=== PATIENT | female | born 1950 | race Caucasian/White ===

== ENCOUNTER 2020-11-11 07:31 | Inpatient (IN) | payer OTHER ==
[~2020-11-11] VITALS: Ht 167.6 cm; Wt 107.8 kg
[~2020-11-11 07:31] MED LIST: CRUTCH2 XX; HYDR1TAB94 PO; PROM25 PO; TRAACE PO
[2020-11-11 08:06] LABS: BASOPHILS ABSOLUTE AUTO 0.05 K/mm3 (0.00-0.23); BASOPHILS PERCENT AUTO 0 % (0-2); EOSINOPHILS ABSOLUTE AUTO 0.21 K/mm3 (0.00-0.68); EOSINOPHILS PERCENT AUTO 1 % (0-6); Hematocrit 44.6 % (33.0-51.0); Hemoglobin 14.5 g/dL (11.5-16.0); IMMATURE GRAN PERCENT AUTO 1 % (0-1); LYMPHOCYTES ABSOLUTE AUTO 0.96 K/mm3 (0.84-5.20); LYMPHOCYTES PERCENT AUTO 6 % (21-46); MONOCYTES ABSOLUTE AUTO 1.19 K/mm3 (0.16-1.47); MONOCYTES PERCENT AUTO 7 % (4-13); Mean Corpuscular HGB 28.6 pg (26.0-34.0); Mean Corpuscular HGB Conc 32.5 g/dL (31.5-36.5); Mean Corpuscular Volume 88 fL (80-100); Mean Platelet Volume 10.1 fL (9.1-12.4); NEUTROPHILS ABSOLUTE AUTO 14.97 K/mm3 (1.96-9.15); NEUTROPHILS PERCENT AUTO 86 % (41-73); Platelet Count 422 K/mm3 (150-400); RDW Coefficient Variation 12.8 % (11.7-14.2); RDW Standard Deviation 41.6 fL (35.1-46.3); Red Blood Cell Count 5.07 M/mm3 (3.80-5.20); White Blood Cell Count 17.48 K/mm3 (4.00-11.30)
[2020-11-11 08:30] LABS: Alanine Aminotransfer (ALT/SGP 14 U/L (12-78); Albumin, Blood 2.8 g/dL (3.4-5.0); Albumin/Globulin Ratio 0.6 (0.8-1.8); Alk Phos 95 U/L (50-136); Anion Gap 13 mmol/L (6-16); Aspartate Aminotrans (AST/SGOT 9 U/L (12-37); Blood Urea Nitrogen 12 mg/dL (8-24); Bun/Creatinine Ratio 14.5 (12.0-20.0); CO2, Blood 21 mmol/L (21-32); Calcium, Blood 8.9 mg/dL (8.5-10.1); Chloride, Blood 104 mmol/L (98-108); Creatinine, Blood 0.83 mg/dL (0.40-1.00); Globulin, Blood 4.5 g/dL (2.2-4.0); Glomerular Filtration Rate >60 (60-); Glucose, Blood 138 mg/dL (70-99); Potassium, Blood 3.2 mmol/L (3.5-5.5); Sodium, Blood 138 mmol/L (136-145); Total Protein, Blood 7.3 g/dL (6.4-8.2); Troponin I <0.015 ng/mL (0.000-0.040)
[2020-11-11] MEDS ORDERED: ALBU2.5V5 INH (09:37)
[2020-11-11] MEDS ORDERED: Aspirin EC81 MG PO (09:37)
[2020-11-11] MEDS ORDERED: IBUP600 PO (09:38)
[2020-11-11 12:25] LABS: International Normalized Ratio 1.07; Prothrombin Time Results 11.4 Sec (9.7-11.5)
[2020-11-11 14:49] LABS: Influenza A, PCR NEGATIVE (NEGATIVE); Influenza B, PCR NEGATIVE (NEGATIVE); Resp Syncytial Virus, PCR NEGATIVE (NEGATIVE); SARS-Cov-2 (COVID-19) PCR, MMC NEGATIVE (NEGATIVE)
[2020-11-11 15:51] LABS: Source, Urine Clean Catch
[2020-11-11 15:55] LABS: Appearance, Urine Hazy (Clear); Blood, Urine 1+ (Neg); Color, Urine Amber (P-Yellow); Glucose Qualitative, Urine Neg (Neg); Ketones, Urine 4+ (Neg); Leukocyte Esterase, Urine 1+ (Neg); Nitrite, Urine Neg (Neg); Protein, Urine 2+ (Neg); Urobilinogen, Urine 3+ (Normal)
[2020-11-11 16:08] LABS: Bilirubin, Urine 1+ (Neg)
[2020-11-11 16:09] LABS: Bacteria Many /hpf; Red Blood Cells, Urine 0-2 /hpf (0-2); Squamous Epithelial Cells Mod /hpf (Few)
[2020-11-11 16:10] LABS: Granular Casts 0-2 /lpf (0); Mucus Light (0-Heavy)
[2020-11-11 16:44] LABS: Automated BF RBC Count 0.004 M/mm3 (0-0); Automated BF WBC Count 3.567 K/mm3 (0-999); Body Fluid WBC Count 3567 /mm3 (0-999); RBC Count, Body Fluid 4000 /mm3 (0-0)
[2020-11-11 17:06] LABS: Lactate Dehydrogenase, Body Fl 827 U/L; Protein, Body Fluid 4.3 g/dL
[2020-11-11 17:27] LABS: Total Cell Count, Body Fluid 100
[2020-11-11 17:28] LABS: Appearance, Body Fluid Cloudy (Clear); Color, Body Fluid Yellow (None-Yellow)
--- NOTE | 2020-11-11 17:54 | NUR ---
ADMISSION NOTE RECEIVED REPORT FROM RAKESH WEAVER FROM ED. PT AND SPOUSE TO ROOM AT 1515; ORIENTED TO ROOM AND CALL LIGHT. EDUCATED ON FALL RISK. ULTRASOUND AND RADIOLOGIST TO ROOM FOR BEDSIDE THORACENTESIS, APPROX 1L REMOVED. PT A&ox4;CALM AND COOPERATIVE WITH CARE. PT RESTING IN BED, UP SBA WITH IV TUBING. PT REPORTS RIGHT SIDE/RIBS, MEDICATED PER EMAR. PT SOB AT REST; ON 3L O2 VIA NC, TITRATED FROM 5L O2 VIA NC ON ADMISSION. LS LINDEN, DIM IN BASES R>L. PT DENIES NAUSEA, NUMB/TINGLING AND LIGHTHEADEDNESS. PT AFIB 80'S ON ADMISSION; CONVERTED PER EKG/PROJECT MANAGEMENT ADVISOR THIS EVEING; CARDIZEM OFF AND STARTED ON PO METOPROLOL. OTHER VSS. NO OTHER ACUTE CHANGES NOTED. WILL CONTINUE TO MONITOR UNITL REPORT GIVEN TO ONCOMING RN.
[2020-11-12 03:45] LABS: BASOPHILS ABSOLUTE AUTO 0.04 K/mm3 (0.00-0.23); BASOPHILS PERCENT AUTO 0 % (0-2); EOSINOPHILS ABSOLUTE AUTO 0.36 K/mm3 (0.00-0.68); EOSINOPHILS PERCENT AUTO 3 % (0-6); Hematocrit 39.8 % (33.0-51.0); IMMATURE GRAN ABSOLUTE AUTO 0.06 K/mm3 (0.00-0.10); IMMATURE GRAN PERCENT AUTO 1 % (0-1); LYMPHOCYTES ABSOLUTE AUTO 1.18 K/mm3 (0.84-5.20); LYMPHOCYTES PERCENT AUTO 9 % (21-46); MONOCYTES ABSOLUTE AUTO 1.31 K/mm3 (0.16-1.47); MONOCYTES PERCENT AUTO 11 % (4-13); Mean Corpuscular HGB 28.1 pg (26.0-34.0); Mean Corpuscular HGB Conc 32.7 g/dL (31.5-36.5); Mean Corpuscular Volume 86 fL (80-100); Mean Platelet Volume 9.9 fL (9.1-12.4); NEUTROPHILS ABSOLUTE AUTO 9.54 K/mm3 (1.96-9.15); NEUTROPHILS PERCENT AUTO 76 % (41-73); Platelet Count 373 K/mm3 (150-400); RDW Coefficient Variation 12.9 % (11.7-14.2); RDW Standard Deviation 40.7 fL (35.1-46.3); Red Blood Cell Count 4.62 M/mm3 (3.80-5.20); White Blood Cell Count 12.49 K/mm3 (4.00-11.30)
[2020-11-12 04:03] LABS: Alanine Aminotransfer (ALT/SGP 12 U/L (12-78); Albumin, Blood 2.3 g/dL (3.4-5.0); Albumin/Globulin Ratio 0.6 (0.8-1.8); Alk Phos 80 U/L (50-136); Anion Gap 8 mmol/L (6-16); Aspartate Aminotrans (AST/SGOT 9 U/L (12-37); Bilirubin, Total 0.6 mg/dL (0.1-1.0); Blood Urea Nitrogen 17 mg/dL (8-24); Bun/Creatinine Ratio 23.7 (12.0-20.0); CO2, Blood 26 mmol/L (21-32); Calcium, Blood 8.5 mg/dL (8.5-10.1); Chloride, Blood 106 mmol/L (98-108); Creatinine, Blood 0.72 mg/dL (0.40-1.00); Glomerular Filtration Rate >60 (60-); Glucose, Blood 96 mg/dL (70-99); Potassium, Blood 3.5 mmol/L (3.5-5.5); Sodium, Blood 140 mmol/L (136-145); Total Protein, Blood 6.3 g/dL (6.4-8.2)
--- NOTE | 2020-11-12 06:03 | NUR ---
SHIFT SUMMARY PT A&O X4. VSS. MONITOR SHOWS NSR, HR 70's. SPO2 > 92% ON 3L NC, TITRATED TO 1L NC THIS SHIFT. PT REPORTS R-SIDED ABD PAIN W/ REPORT OF PAIN "ONLY WHEN I'M MOVING OR COUGHING." PT DENIES WANT/NEED FOR ORDERED NORCO OR FENTANYL PER EMAR, STATING "I WOULD RATHER NOT TAKE NARCOTICS IF I DON'T NEED TO. JUST A SMALL AMOUNT MAKES ME FUZZY." PT TAKING TYLENOL PER EMAR PER PT PREFERENCE FOR PAIN. PT SLEEPING IN RM. NO EVENTS OVER NIGHT. WILL CONTINUE TO MONITOR & PROVIDE CARE UNTIL REPORT OFF TO DAY SHIFT RN.
--- NOTE | 2020-11-12 16:52 | NUR ---
SHIFT SUMMARY: PT ALERT AND ORIENTED X4. ON ROOM AIR SATING ABOVE 92%. USING 1 L O2 VIA NASAL CANNULA NEEDED. PT DESCRIBES THE NEED FOR O2 AFTER WALKING TO AND FROM RESTROOM. TELE SHOWING SINUS WITH HR 70'S. DENIES CHEST PAIN. PAIN LOCATED ON RIGHT SIDE THAT INCREASES WITH COUGHING AND MOVEMENT. RELIEF FROM PAIN WITH TYLENOL AND REST. ECHO DONE THIS AM. NEURO WNL. GAUZE/TEGADERM OVER THOROCENTESIS SITE. UP TO BATHROOM WITH ASSISTANCE. USING CALL LIGHT. VITAL SIGNS STABLE. IV ANTIBIOTICS INFUSED THIS SHIFT. LEFT AC AND RIGHT FORARM IV'S SALINE LOCKED AND FLUSHING WELL. WILL CONTINUE TO MONITOR AND REPORT OFF.
[2020-11-13 05:18] LABS: BASOPHILS ABSOLUTE AUTO 0.05 K/mm3 (0.00-0.23); BASOPHILS PERCENT AUTO 1 % (0-2); EOSINOPHILS ABSOLUTE AUTO 0.39 K/mm3 (0.00-0.68); EOSINOPHILS PERCENT AUTO 4 % (0-6); IMMATURE GRAN ABSOLUTE AUTO 0.06 K/mm3 (0.00-0.10); IMMATURE GRAN PERCENT AUTO 1 % (0-1); LYMPHOCYTES ABSOLUTE AUTO 1.04 K/mm3 (0.84-5.20); LYMPHOCYTES PERCENT AUTO 10 % (21-46); MONOCYTES PERCENT AUTO 13 % (4-13); Mean Corpuscular HGB 28.1 pg (26.0-34.0); Mean Corpuscular HGB Conc 32.5 g/dL (31.5-36.5); Mean Corpuscular Volume 87 fL (80-100); Mean Platelet Volume 9.9 fL (9.1-12.4); NEUTROPHILS ABSOLUTE AUTO 7.34 K/mm3 (1.96-9.15); NEUTROPHILS PERCENT AUTO 72 % (41-73); Platelet Count 408 K/mm3 (150-400); RDW Coefficient Variation 12.9 % (11.7-14.2); RDW Standard Deviation 40.7 fL (35.1-46.3); Red Blood Cell Count 4.62 M/mm3 (3.80-5.20); White Blood Cell Count 10.18 K/mm3 (4.00-11.30)
[2020-11-13 05:35] LABS: Anion Gap 7 mmol/L (6-16); Blood Urea Nitrogen 11 mg/dL (8-24); Bun/Creatinine Ratio 16.6 (12.0-20.0); CO2, Blood 28 mmol/L (21-32); Calcium, Blood 8.6 mg/dL (8.5-10.1); Chloride, Blood 104 mmol/L (98-108); Creatinine, Blood 0.66 mg/dL (0.40-1.00); Glomerular Filtration Rate >60 (60-); Glucose, Blood 96 mg/dL (70-99); Potassium, Blood 3.6 mmol/L (3.5-5.5); Sodium, Blood 139 mmol/L (136-145)
--- NOTE | 2020-11-13 06:06 | NUR ---
SHIFT SUMMARY PATIENT IS ALERT, ORIENTED, AND COOPERATIVE WITH CARE. INDEPENDENT IN ROOM. MEDICATED FOR RIGHT SIDE/BACK PAIN, SEE EMAR. REPOSITIONED WITH PILLOWS. 02 SATS >95% ON 1L 02, SOB WITH EXERTION. MEDICATED FOR NAUSEA SEE EMAR. VSS, NO ACUTE CHANGES. CALL LIGHT IN REACH.
--- NOTE | 2020-11-13 18:37 | NUR ---
SHIFT SUMMARY PT A&Ox4; CALM AND COOPERATIVE WITH CARE. PT RESTING IN BED DURING SHIFT. UP IND IN ROOM. PT REPORTS RIGHT SIDE/RIB PAIN, WORSENS WITH DEEP BREATH AND COUGH; MEDICATED x1 WITH NORCO. EDUCATED PT ON PAIN MANAGEMENT. PT SOB WITH EXERTIONS; ON 1L O2 VIA NC THIS AM; TITRATED TO ROOM RA AT REST. PT WEARS 1L O2 VIA NC TO RECOVER FROM AMBULATIONS. PT DENIES DIZZINESS AND NASUEA T/O SHIFT. VSS. NO OTHER ACUTE CHANGES NOTED DURING SHIFT. WILL CONTINUE TO MONITOR UNTIL REPORT GIVEN TO ONCOMING RN.
[2020-11-14 04:21] LABS: Hematocrit 40.1 % (33.0-51.0); Mean Corpuscular HGB 28.3 pg (26.0-34.0); Mean Corpuscular HGB Conc 32.4 g/dL (31.5-36.5); Mean Corpuscular Volume 87 fL (80-100); Mean Platelet Volume 9.6 fL (9.1-12.4); Platelet Count 415 K/mm3 (150-400); RDW Standard Deviation 40.6 fL (35.1-46.3); White Blood Cell Count 9.86 K/mm3 (4.00-11.30)
[2020-11-14 04:37] LABS: Anion Gap 5 mmol/L (6-16); Blood Urea Nitrogen 10 mg/dL (8-24); Bun/Creatinine Ratio 15.8 (12.0-20.0); CO2, Blood 31 mmol/L (21-32); Calcium, Blood 8.7 mg/dL (8.5-10.1); Chloride, Blood 102 mmol/L (98-108); Creatinine, Blood 0.63 mg/dL (0.40-1.00); Glomerular Filtration Rate >60 (60-); Glucose, Blood 91 mg/dL (70-99); Potassium, Blood 3.5 mmol/L (3.5-5.5); Sodium, Blood 138 mmol/L (136-145)
--- NOTE | 2020-11-14 05:24 | NUR ---
SHIFT SUMMARY PATIENT IS ALERT AND ORIENTED. INDEPENDENT IN THE ROOM. PATIENT HAVING RIGHT SIDE PAIN, MEDICATED PER EMAR, AND PROVIDED QUIET ENVIRONMNET WITH UNINTERRUPTED REST. AT ABOUT 0340 PATIENT STATED HER PAIN WAS BACK, WHEN OFFERED MEDICATION OR ANY OTHER COMFORT MEASURES PATIENT STATED SHE WAS FINE FOR NOW. 02 SATS >90% ON RA, 1L OF 02 PRN AFTER ACTIVITY. VSS, NO ACUTE CHANGES. CALL LIGHT IN REACH.
--- NOTE | 2020-11-14 16:04 | NUR ---
SHIFT SUMMARY PT A&Ox4; COOPERATIVE WITH CARE. PT ANXIOUS, EXPRESSED FEARS REGARDING PROCEDURE AND UNCERTAIN DIAGNOSIS. PT UP IND IN ROOM. PT REPORTS RIGHT RIB/SIDE, MEDICATED PER EMAR. SOB WITH ACTIVITY, WEARING 1L O2 VIA NC FOR ACTIVITY. PT DENIES NAUSEA AND DIZZINESS. PLANS FOR CHEST TUBE PLACEMENT TODAY OR TOMORROW. VSS. NO OTHER ACUTE CHANGES NOTED. WILL CONTINUE TO MONITOR UNTIL REPORT GIVEN TO ONCOMING RN.
--- NOTE | 2020-11-14 18:20 | NUR ---
report givne to rickey bowen assuming care of patient. pt left room at 1720 to [phone]
--- NOTE | 2020-11-14 18:48 | NUR ---
SHIFT SUMMARY- PT ALERT AND ORIENTED INDEPENDENT IN THE ROOM. CALLED DR HARDY PT HAS ORDER TO TITRATE O2 AND HAS A PLANED THORACENTESIS TOMORROW WITH CHEST TUBE PLACEMENT, PT WAS DESCRIBING DYSPNEA ON EXERTION, RQUESTTED ORDER FOR CONT PULSE OX. PLACED THE PT ON MONITOR, SATS 93% ON 1L VIA NC. PT CURRENTLY INDEPENDENT IN THE ROOM. PLAN IS FOR CHEST TUBE PLACEMENT TOMORROW. PT IS AWARE. PT IN BED CALL LIGHT IN REACH NO S&S OF DISTRESS NOTED AT THIS TIME.
--- NOTE | 2020-11-15 04:37 | NUR ---
ABATTOIR MANAGER SUMMARY PT A&OX4, ABLE TO MAKE NEEDS KNOWN. PLEASANT AND COOPERATIVE TO CARE. PT INDEPENDENT IN ROOM AND CALLS APPROPRIATELY FOR ASSISTANCE. PT MEDICATED FOR PAIN PER EMAR, PT ALSO MEDICATED FOR NAUSEA PER EMAR. DENIES CP. TELE NSR 90's. PT CONT TO REPORT DYSPNEA W/ EXERTION. CONT ON 1LPM O2 VIA NC, ON CONT BIOX SATS >92%. PT CURRENTLY RESTING IN BED AT THIS TIME, NO S/S OF DISTRESS NOTED. BED AT LOWEST POSITION. CALL LIGHT WITHIN REACH.
--- NOTE | 2020-11-15 10:34 | NUR ---
PT C/O 10/10 PAIN IN R CHEST WITH ASSOICATED DYSPNEA. MEDICATED WITH TYLENOL PER HER REQUEST AT 0903. UPON REASSESSMENT, SHE STATED PAIN IS STILL 7/10 WITH NO CHANGE IN DYSPNEA. SHE DECLINED OFFERED NARCOTIC PAIN MEDICATIONS. C/O FEELING HOT, GAVE PORTABLE FAN WHICH SHE APPRECIATED. THORACENTESIS AND CT PLACEMENT PENDING THIS AFTERNOON.
--- NOTE | 2020-11-15 14:24 | NUR ---
PATIENT OFF UNIT VIA GURNEY AT [address] PLACEMENT. PRE MEDICATED WITH ZOFRAN AND NORCO 1 TAB PER HER REQUEST.
[2020-11-15 15:33] LABS: Automated BF RBC Count 0.003 M/mm3 (0-0); Automated BF WBC Count 0.228 K/mm3 (0-999); Body Fluid WBC Count 228 /mm3 (0-999); RBC Count, Body Fluid 3000 /mm3 (0-0)
[2020-11-15 15:47] LABS: pH, Body Fluid 7.7
[2020-11-15 15:52] LABS: Glucose, Body Fluid 58 mg/dL; Lactate Dehydrogenase, Body Fl 982 U/L; Protein, Body Fluid 4.3 g/dL; Triglycerides, Body Fluid 41 mg/dL
[2020-11-15 16:04] LABS: Appearance, Body Fluid Clear (Clear); Color, Body Fluid Yellow (None-Yellow); Total Cell Count, Body Fluid 100
--- NOTE | 2020-11-15 16:16 | NUR ---
PATIENT RETURNED FROM CT INSERTION PROCEDURE AT ~ 1530. A&O X 4, PLEASANT. STATES PAIN IS WELL CONTROLLED AT THIS TIME. PIGTAIL CHEST TUBE SITE IN R MIDAXILLARY LINE CONNECTED TO LARGER ADAPTER FOR [employer] COLLECTION DEVICE. RECEIVED [facility] UNIT FROM [facility] AND SET UP ACCORDING TO MFR INSTRUCTIONS WITH NIMO FUENTES RN. SET TO LCS AT - 20 MM HG SUCTION, FAR LEFT CHANBER BUBBLING. PLACED ON CONTINUOUS OXIMETRY AND REPLACED DIRECTOR OF PUBLIC RELATIONS. PT'S SPOUSE AT BEDSIDE.
--- NOTE | 2020-11-15 19:44 | NUR ---
SHIFT SUMMARY: PAIN POORLY CONTROLLED PT DOES NOT ASK FOR PAIN MEDICATION DESPITE EDUCATION. SPOUSE HAD TO COME OUT TO ASK THIS AUTHOR TO GIVE PAIN MEDS. PT STATED SHE DOES NOT LIKE TAKING NARCOTICS. NO OUTPUT FROM CHEST TUBE. NO EVENTS ON TELEMETRY, SR 80-90'S. ON O2 @ 1 L/MIN NC, CONTINUOUS OXIMETRY SHOWING SAT 90-93%. BREATH SOUNDS DIM ON R SIDE. OCC GRADUATE TEACHER EDUCATION COUGH. WAS GETTING UP INDEPENDENTLY TO BR BEFORE CT PLACED, NOW USING BSC. MODERATE APPETITE, MEDICATED FOR NAUSEA X 1 WITH RELIEF.
--- NOTE | 2020-11-15 23:02 | NUR ---
AT APPROXIMATELY 2129 THIS RN NOTED THAT PATIENT'S CHEST TUBE DRAINAGE SYSTEM CONTINUES TO HAVE NO DRAINAGE OUTPUT SINCE SHIFT REPORT. CHEST TUBE SYSTEM WAS ALREADY SET UP BEFORE START OF SHIFT. PT AT THIS TIME CALM AND RESTED IN BED, NO C/O SOB, NO APPARENT DISTRESS NOTED, SATS 92-94% ON 1LPM O2 VIA NC. PT C/O INTERMITTENT PAIN TO CHEST TUBE SURGICAL SITE. DENIES ANY OTHER DISCOMFORT. THIS RN IMMEDIATELY NOTIFIED LINE OPERATOR MALINI AND RN MECHANICAL SYSTEMS DESIGN ENGINEER MADISON. LINE OPERATOR AND RN MECHANICAL SYSTEMS DESIGN ENGINEER ALONG WITH THIS RN ASSESSED PATIENT'S CHEST TUBE DRAINAGE SET-UP. IT WAS NOTED THAT STOPCOCK WAS OFF, IMMEDIATELY TURNED ON BY RN MECHANICAL SYSTEMS DESIGN ENGINEER, AFTER A FEW SECONDS, APPROXIMATELY 5CC DRAINAGE NOTED ON TUBE. CHEST TUBE SUCTION TITRATED BY RN MECHANICAL SYSTEMS DESIGN ENGINEER ORDERED. AT APPROXIMATELY 2233, THIS RN NOTIFIED DR. POTTER HOSPITALIST OF THE ABOVE, NO FURTHER ORDERS NOTED. PATIENT MEDICATED FOR PAIN PER EMAR, PT REQUESTED TO TAKE TYLENOL FOR PAIN AND ZOFRAN FOR NAUSEA. ADMINISTERED ORDERED. PT RESTING COMFORTABLY IN BED AT THIS TIME. CHEST TUBE SYSTEM IN PLACE W/O ANY ISSUES. PT SATS 93-94% PER CONTINUOUS BIOX. PT DENIES ANY DISCOMFORT. BED AT LOWEST POSITION. CALL LIGHT WITHIN REACH.
[2020-11-16 05:00] LABS: BASOPHILS ABSOLUTE AUTO 0.07 K/mm3 (0.00-0.23); BASOPHILS PERCENT AUTO 1 % (0-2); EOSINOPHILS ABSOLUTE AUTO 0.23 K/mm3 (0.00-0.68); EOSINOPHILS PERCENT AUTO 2 % (0-6); Hematocrit 38.5 % (33.0-51.0); Hemoglobin 12.5 g/dL (11.5-16.0); IMMATURE GRAN ABSOLUTE AUTO 0.12 K/mm3 (0.00-0.10); IMMATURE GRAN PERCENT AUTO 1 % (0-1); LYMPHOCYTES ABSOLUTE AUTO 1.38 K/mm3 (0.84-5.20); LYMPHOCYTES PERCENT AUTO 14 % (21-46); MONOCYTES ABSOLUTE AUTO 1.02 K/mm3 (0.16-1.47); MONOCYTES PERCENT AUTO 10 % (4-13); Mean Corpuscular HGB Conc 32.5 g/dL (31.5-36.5); Mean Corpuscular Volume 86 fL (80-100); Mean Platelet Volume 9.3 fL (9.1-12.4); NEUTROPHILS ABSOLUTE AUTO 7.13 K/mm3 (1.96-9.15); NEUTROPHILS PERCENT AUTO 72 % (41-73); Platelet Count 477 K/mm3 (150-400); RDW Coefficient Variation 12.8 % (11.7-14.2); RDW Standard Deviation 40.5 fL (35.1-46.3); Red Blood Cell Count 4.46 M/mm3 (3.80-5.20); White Blood Cell Count 9.95 K/mm3 (4.00-11.30)
[2020-11-16 05:16] LABS: Anion Gap 5 mmol/L (6-16); Blood Urea Nitrogen 10 mg/dL (8-24); Bun/Creatinine Ratio 16.5 (12.0-20.0); CO2, Blood 31 mmol/L (21-32); Calcium, Blood 8.9 mg/dL (8.5-10.1); Chloride, Blood 101 mmol/L (98-108); Creatinine, Blood 0.61 mg/dL (0.40-1.00); Glomerular Filtration Rate >60 (60-); Glucose, Blood 91 mg/dL (70-99); Potassium, Blood 3.8 mmol/L (3.5-5.5); Sodium, Blood 137 mmol/L (136-145)
--- NOTE | 2020-11-16 07:21 | NUR ---
CHANNEL SALES DIRECTOR SUMMARY PT A&OX4, ABLE TO MAKE NEEDS KNOWN, PLEASANT AND COOPERATIVE TO CARE. PT MEDICATED FOR PAIN ON SURGICAL SITE ON R THORACIC AREA, PT REPORTED THAT PAIN IS PRESENT WHEN COUGHING OR WITH MOVEMENT. PT ALSO MEDICATED FOR NAUSEA PER EMAR. NO C/O CHEST PAIN, PT REPORTED SOB WITH EXERTION. PT SBA TO BSC. CHEST TUBE IN PLACE, DRESSING C/D/I. NO ISSUES NOTED WITH CHEST TUBE DRAINAGE SYSTEM. 19ML OF SEROUS DRAINAGE NOTED. MARKED AND DATED. PT RESTING IN BED AT THIS TIME. ON 1LPM O2 VIA NC W/ HUMIDIFIER, ON CONT BIOX, SATS >92-95%. TELE NSR 70'S. BED AT LOWEST POSITION. CALL LIGHT WITHIN REACH.
--- NOTE | 2020-11-16 18:38 | NUR ---
SHIFT SUMMARY PT WOKE FOR SHIFT REPORT THIS AM. PT C/O PAIN INCREASING THIS AM. PT MEDCIATED PER EMAR. PT TEARFUL WHEN DR HARDY IN TO SEE HER, DUE TO PAIN FROM CHEST TUBE. PT NOT WANTING TO TAKE PAIN MEDICATION, ESPECIALLY NARCOTICS, BUT ENCOURAGED TO TRY IV FENTANYL TO GET PAIN UNDER CONTROL. PT AGREED AND HAS BEEN ABLE TO MANAGE PAIN BETTER THE REST OF THE DAY WITH PO NORCO AND TYLENOL. CHEST TUBE DRAINING LIGHT YELLOW FLUID. PT'S IN TO VISIT THIS AFTERNOON WELL COMMERCIAL BANKER, DR AMADO. NEW ORDERS PLACED. US BEING DONE AT THIS TIME. NUC MED CALLED TO REPORT THAT VQ LUNG SCAN TO BE DONE IN AM AROUND 9 TO 9:30. PT INFORMED. PT UP TO BSC NEEDED. CALL LT IN REACH. ABLE TO MAKE NEEDS KNOWN.
--- NOTE | 2020-11-17 06:25 | NUR ---
PT IS A/O UP TO BSC WITH ONE ASSIST.CHEST TUBE IN RIGHT SIDE DRAINING CLEAR YELLOW FLUID. PT PREFERS NOT TO TAKE PAIN MEDICATION BUT NEEDS REMINDING AND ENCOURAGEMENT TO TAKE NEEDED TO KEEP PAIN UNDER CONTROL. PT IS VERY PLEASANT, LUNG SCAN TO BE PERFORMED THIS AM BETWEEN 9-930.
--- NOTE | 2020-11-17 19:26 | NUR ---
A/Ox4, pleasant/cooperative/talkative. Patient went down for Lung VQ scan this morning. Upon returning, connection between chest tube and one-way valve became disconnected. Chest tube was closed. No s/sx of respiratory distress. Tubing changed by ICU-RN and suction resumed, gentle bubbles present. L/S unchanged from this morning. Drainage amount from tube was 100 cc, marked and charted. Dr. Marina notified of incident. Medicated for R chest pain x 2 with tylenol, pt requesting to hold off on [place] d/t constipation. Prune juice given, no bowel movements this shift. Up to BSC independently. Tele: SR 80's. Report given to oncoming RN.
--- NOTE | 2020-11-18 06:46 | NUR ---
PT IS VERY PLEASANT ONLY WANTING TYLENOL THIS SHIFT FOR PAIN, 1-ASSIST TO BSC DUE TO CHEST TUBE IN RIGHT SIDE, CXR DONE THIS AM. TELE MONITOR IN SR.
--- NOTE | 2020-11-18 19:17 | NUR ---
Shift Summary Patient concerned about irregularity in bowel patterns, though did have a large bm this shift. Miralax and Dulcolax ordered. Pain ratings to R chest are 6-8/10, medicated x 1 c Fentanly and 2 x tylenol, both with moderate effect. Plan to cobra tx to [facility] tomorrow per Dr. French. Tele: SR 84. Medicated for nausea as well. Report given to oncoming RN.
[2020-11-19 05:01] LABS: BASOPHILS ABSOLUTE AUTO 0.07 K/mm3 (0.00-0.23); BASOPHILS PERCENT AUTO 1 % (0-2); EOSINOPHILS ABSOLUTE AUTO 0.33 K/mm3 (0.00-0.68); EOSINOPHILS PERCENT AUTO 3 % (0-6); Hemoglobin 11.7 g/dL (11.5-16.0); IMMATURE GRAN ABSOLUTE AUTO 0.11 K/mm3 (0.00-0.10); IMMATURE GRAN PERCENT AUTO 1 % (0-1); LYMPHOCYTES ABSOLUTE AUTO 1.35 K/mm3 (0.84-5.20); LYMPHOCYTES PERCENT AUTO 12 % (21-46); MONOCYTES ABSOLUTE AUTO 1.32 K/mm3 (0.16-1.47); MONOCYTES PERCENT AUTO 12 % (4-13); Mean Corpuscular HGB Conc 31.6 g/dL (31.5-36.5); Mean Corpuscular Volume 89 fL (80-100); Mean Platelet Volume 9.2 fL (9.1-12.4); NEUTROPHILS ABSOLUTE AUTO 7.68 K/mm3 (1.96-9.15); NEUTROPHILS PERCENT AUTO 71 % (41-73); Platelet Count 522 K/mm3 (150-400); RDW Coefficient Variation 12.7 % (11.7-14.2); RDW Standard Deviation 41.4 fL (35.1-46.3); Red Blood Cell Count 4.18 M/mm3 (3.80-5.20); White Blood Cell Count 10.86 K/mm3 (4.00-11.30)
[2020-11-19 05:16] LABS: Anion Gap 5 mmol/L (6-16); Blood Urea Nitrogen 8 mg/dL (8-24); Bun/Creatinine Ratio 12.7 (12.0-20.0); CO2, Blood 31 mmol/L (21-32); Calcium, Blood 8.5 mg/dL (8.5-10.1); Chloride, Blood 102 mmol/L (98-108); Creatinine, Blood 0.63 mg/dL (0.40-1.00); Glomerular Filtration Rate >60 (60-); Glucose, Blood 93 mg/dL (70-99); Potassium, Blood 3.8 mmol/L (3.5-5.5); Sodium, Blood 138 mmol/L (136-145)
--- NOTE | 2020-11-19 06:20 | NUR ---
SHIFT SUMMARY PT IS A 70 Y/O FEMALE, ADMITTED FOR AFIB WITH RVR AND A CURRENT R PLEURAL EFFUSION, CHEST TUBE IN PLACE. PT IS C/O R SIDE CHEST PAIN, SHE WAS MEDICATED WITH TYLENOL AND ONE DOSE OF PRN FENTANYL D/T EXTREME PAIN. SHE WAS ALSO WITH IV ZOFRAN BECAUSE "TYLENOL MAKES ME NAUSEOUS". NO C/O ACUTE SOB, BUT DID REPORT A CONTINUING COUGH. PT SLEPT OFF AND ON DURING THE NIGHT. AM BP WAS ELEVATED, 166/94 AND 174/91 ON RECHECK. ALL OTHER VITALS STABLE. TELE SHOWED NSR IN THE 80S. NO OTHER ACUTE CHANGES IN PT CONDITION NOTED. WILL CONTINUE TO MONITOR AND TREAT PER EMAR UNTIL HAND OFF TO DAY SHIFT RN.
--- NOTE | 2020-11-19 14:34 | NUR ---
REPORT GIVEN TO [facility] RAKESH REPORT GIVEN TO RAKESH KRISHNAN AT [facility]. ARIELLA DENIED NEED FOR FURTHER INFO AT THIS TIME. PT UPDATED AND TRANSPORT BEING ARRANGED BY SHORTHAND TEACHER, LORI.
--- NOTE | 2020-11-19 15:02 | NUR ---
PT DISCHARGED PT DISCHARGED AT 1500 AND TRANSPORTED TO [facility] IN [place]. PT PICKED UP BY [facility]. CHEST TUBE WATER SEALED FOR TRANSPORT. IV REMAINED INTACT. TELE REMOVED PRIOR TO DC. PT SPOUSE AWARE OF DISCHARGE AND PLAN TO TRANSPORT [place]. NO CHANGES IN ASSESSMENT PRIOR TO DC. PT ALERT & PLEASANT T/O SHIFT AND UPON DEPARTURE FROM ROOM. BELONGINGS SENT WITH PT.
== END 2020-11-19 15:12 | disposition short-term general hospital (02) | DRG 193 ==
LOC: ER 07:31 → MEDS 11:37 → ERHOLD 11:37 → PCU 11:37 → MEDS 11-14 17:27 → ENPENDDIS 11-19 12:44 → MEDS 11-19 15:12
PROVIDERS: Emergency Medicine; Internal Medicine; Internal Medicine Pulmonary Disease; Nurse Practitioner Acute Care; ADMIT Hospitalist
PROC: 0W9B3ZZ Drainage of Left Pleural Cavity, Percutaneous Approach (ICD-10-PCS; principal; 2020-11-11)
DX: J18.9 Pneumonia, unspecified organism (principal); J96.01 Acute respiratory failure with hypoxia; J91.8 Pleural effusion in other conditions classified elsewhere; I10 Essential (primary) hypertension; I48.0 Paroxysmal atrial fibrillation; F41.9 Anxiety disorder, unspecified; Z88.0 Allergy status to penicillin; Z88.2 Allergy status to sulfonamides; Z91.040 Latex allergy status; Z88.5 Allergy status to narcotic agent; Z88.8 Allergy status to other drugs, medicaments and biological substances; J45.20 Mild intermittent asthma, uncomplicated; E66.01 Morbid (severe) obesity due to excess calories; Z98.890 Other specified postprocedural states; Z79.82 Long term (current) use of aspirin; Z79.899 Other long term (current) drug therapy; Z88.1 Allergy status to other antibiotic agents; E87.6 Hypokalemia
CPT/HCPCS: 0241U; 32555; 32557; 36415; 71045; 71046; 71250; 74176; 78580; 80048; 80053; 81001; 82945; 83605; 83615; 83690; 83735; 83880; 83986; 84145; 84157; 84443; 84478; 84484; 85025; 85027; 85610; 85730; 86738; 87040; 87070; 87086; 87205; 87449; 88108; 88305; 89051; 93005; 93010; 93306; 93970; 94760; 94762; 96361; 96365; 96366; 96367; 96375; 96376; 99285-25; A9270; A9270-GY; A9540; J0696; J1885; J2405; J3010; J3480; J7030; J7050

== ENCOUNTER 2021-10-08 09:09 | Inpatient (IN) | payer OTHER ==
[~2021-10-08] VITALS: Ht 167.6 cm; Wt 101.9 kg
[~2021-10-08 09:09] MED LIST changes: +ALBU2.5V5 INH; +Aspirin EC81 MG PO; +IBUP600 PO
[2021-10-08 10:11] LABS: BASOPHILS ABSOLUTE AUTO 0.01 K/mm3 (0.00-0.23); BASOPHILS PERCENT AUTO 0 % (0-2); EOSINOPHILS PERCENT AUTO 0 % (0-6); Hematocrit 42.4 % (33.0-51.0); Hemoglobin 14.2 g/dL (11.5-16.0); IMMATURE GRAN ABSOLUTE AUTO 0.04 K/mm3 (0.00-0.10); IMMATURE GRAN PERCENT AUTO 1 % (0-1); LYMPHOCYTES ABSOLUTE AUTO 0.65 K/mm3 (0.84-5.20); LYMPHOCYTES PERCENT AUTO 12 % (21-46); MONOCYTES ABSOLUTE AUTO 0.28 K/mm3 (0.16-1.47); MONOCYTES PERCENT AUTO 5 % (4-13); Mean Corpuscular HGB 28.4 pg (26.0-34.0); Mean Corpuscular HGB Conc 33.5 g/dL (31.5-36.5); Mean Corpuscular Volume 85 fL (80-100); Mean Platelet Volume 9.7 fL (9.1-12.4); NEUTROPHILS ABSOLUTE AUTO 4.43 K/mm3 (1.96-9.15); NEUTROPHILS PERCENT AUTO 82 % (41-73); Platelet Count 308 K/mm3 (150-400); RDW Coefficient Variation 12.3 % (11.7-14.2); RDW Standard Deviation 37.6 fL (35.1-46.3); White Blood Cell Count 5.41 K/mm3 (4.00-11.30)
[2021-10-08 10:37] LABS: Alanine Aminotransfer (ALT/SGP 30 U/L (12-78); Albumin, Blood 3.3 g/dL (3.4-5.0); Albumin/Globulin Ratio 0.8 (0.8-1.8); Alk Phos 65 U/L (50-136); Anion Gap 9 mmol/L (6-16); Aspartate Aminotrans (AST/SGOT 27 U/L (12-37); Bilirubin, Total 0.4 mg/dL (0.1-1.0); Blood Urea Nitrogen 14 mg/dL (8-24); Bun/Creatinine Ratio 22.3 (12.0-20.0); CO2, Blood 27 mmol/L (21-32); Calcium, Blood 8.8 mg/dL (8.5-10.1); Chloride, Blood 105 mmol/L (98-108); Creatinine, Blood 0.63 mg/dL (0.40-1.00); Globulin, Blood 3.9 g/dL (2.2-4.0); Glomerular Filtration Rate >60 (60-); Glucose, Blood 148 mg/dL (70-99); Potassium, Blood 3.5 mmol/L (3.5-5.5); Sodium, Blood 141 mmol/L (136-145); Total Protein, Blood 7.2 g/dL (6.4-8.2)
[2021-10-08 11:26] LABS: Influenza A, PCR NEGATIVE (NEGATIVE); Influenza B, PCR NEGATIVE (NEGATIVE); Resp Syncytial Virus, PCR NEGATIVE (NEGATIVE)
[2021-10-08 11:37] LABS: SARS-Cov-2 (COVID-19) PCR, MMC POSITIVE (NEGATIVE)
[2021-10-08 14:06] LABS: Source, Urine Fem Cath
[2021-10-08 14:10] LABS: Bilirubin, Urine Neg (Neg); Blood, Urine Neg (Neg); Glucose Qualitative, Urine Neg (Neg); Ketones, Urine 3+ (Neg); Leukocyte Esterase, Urine Neg (Neg); Nitrite, Urine Neg (Neg); Protein, Urine 1+ (Neg); Urobilinogen, Urine NORM (Normal)
[2021-10-08 14:17] LABS: Appearance, Urine Clear (Clear); Color, Urine Pale Yellow (P-Yellow)
--- NOTE | 2021-10-08 15:45 | NUR ---
ADMIT PT ADMITTED AT 1500. PT ORIENTED TO ROOM. GIVEN CALL LIGHT. BED ALARM SET. PT REFUSED FOR HER UNDERWEAR TO BE CHANGED AT THIS TIME INTO A BREIF. STATES SHE "JUST NEEDS TO REST". PT ALERT & ORIENTED. WATER PROVIDED. IV FLUIDS RUNNING. VS REVIEWED & PT SATING AT 96% ON RA.
--- NOTE | 2021-10-09 05:51 | NUR ---
SHIFT SUMMARY PATIENT ALERT AND ORIENTED X4 ABLE TO VOICE NEEDS C/O NAUSEA WITH SMALL BROWN EMESIS X1 REFUSED ZOFRAN ABD SOFT NONTENDER WITH POSITIVE BOWEL SOUNDS 4 QUADS ASSISTED WITH BED MCNEIL URINE OUTPUT 400CC.CONT CLEAR DIET AND CONTINUES NS RUNNING AT 100ML/HR TELE SINUS RTHYM HR59.PLEASANT ANGIE PAIN NO ALEVATED TEMP 97.8 IN THIS SHIFT NO SOB NOTED PT ON RA.
[2021-10-09 06:37] LABS: BASOPHILS ABSOLUTE AUTO 0.02 K/mm3 (0.00-0.23); BASOPHILS PERCENT AUTO 0 % (0-2); EOSINOPHILS ABSOLUTE AUTO 0.02 K/mm3 (0.00-0.68); EOSINOPHILS PERCENT AUTO 0 % (0-6); Hematocrit 40.9 % (33.0-51.0); Hemoglobin 13.6 g/dL (11.5-16.0); IMMATURE GRAN ABSOLUTE AUTO 0.04 K/mm3 (0.00-0.10); IMMATURE GRAN PERCENT AUTO 0 % (0-1); LYMPHOCYTES ABSOLUTE AUTO 1.35 K/mm3 (0.84-5.20); LYMPHOCYTES PERCENT AUTO 15 % (21-46); MONOCYTES ABSOLUTE AUTO 0.77 K/mm3 (0.16-1.47); MONOCYTES PERCENT AUTO 8 % (4-13); Mean Corpuscular HGB 28.5 pg (26.0-34.0); Mean Corpuscular HGB Conc 33.3 g/dL (31.5-36.5); Mean Corpuscular Volume 86 fL (80-100); NEUTROPHILS ABSOLUTE AUTO 6.92 K/mm3 (1.96-9.15); NEUTROPHILS PERCENT AUTO 76 % (41-73); Platelet Count 334 K/mm3 (150-400); RDW Coefficient Variation 12.3 % (11.7-14.2); RDW Standard Deviation 38.9 fL (35.1-46.3); Red Blood Cell Count 4.77 M/mm3 (3.80-5.20); White Blood Cell Count 9.12 K/mm3 (4.00-11.30)
--- NOTE | 2021-10-09 06:44 | NUR ---
TELE SINUS HAY HR 59
[2021-10-09 07:07] LABS: Alanine Aminotransfer (ALT/SGP 27 U/L (12-78); Albumin, Blood 3.1 g/dL (3.4-5.0); Albumin/Globulin Ratio 0.9 (0.8-1.8); Alk Phos 62 U/L (50-136); Anion Gap 5 mmol/L (6-16); Aspartate Aminotrans (AST/SGOT 25 U/L (12-37); Bilirubin, Total 0.5 mg/dL (0.1-1.0); Blood Urea Nitrogen 10 mg/dL (8-24); Bun/Creatinine Ratio 16.5 (12.0-20.0); CO2, Blood 29 mmol/L (21-32); Calcium, Blood 8.4 mg/dL (8.5-10.1); Chloride, Blood 108 mmol/L (98-108); Cholesterol 180 mg/dL (50-200); Creatinine, Blood 0.61 mg/dL (0.40-1.00); Globulin, Blood 3.5 g/dL (2.2-4.0); Glomerular Filtration Rate >60 (60-); Glucose, Blood 108 mg/dL (70-99); HDL Cholesterol 45 mg/dL (>39); LDL/HDL RATIO 2.6; Low Density Lipoprotein Chol 117 mg/dL (0-110); Potassium, Blood 3.4 mmol/L (3.5-5.5); Sodium, Blood 142 mmol/L (136-145); Total Protein, Blood 6.6 g/dL (6.4-8.2); Triglycerides 90 mg/dL (30-160); Very Low Density Lipoprot Chol 18 mg/dL (6-32)
--- NOTE | 2021-10-09 18:04 | NUR ---
SHIFT SUMMARY PT WITH NAUSEA AND SMALL EMESIS ON AND OFF THROUGH THE DAY. MEDICATED FOR NAUSEA SEVERAL TIMES TODAY WITH PHENERGAN BEING THE MOST EFFECTIVE BUT PT DEVELOPED RESTLESS LEGS ABOUT 10 MINUTES AFTER BEING GIVEN. MD NOTIFIED OF CONDITION. ALSO REPORTED SIGNIFICANT PAIN TO LAC IV SOON AFTER PHENERGAN GIVEN. BLOOD RETURN CHECKED PRIOR TO GIVING PHENERGAN AND INFUSED SLOWLY. REPORTED PAIN AROUND IV CATHETER NOT THE INSERTION SITE. IV REMOVED. HAS REMAINED ONLY ON HER BACK AND LIFTING HER LEGS TO USE BEDPAN RATHER THAN GETTING UP TO USE COMMODE DUE TO SEVERE DIZZINESS AND NAUSEA WITH ANY MOVEMENT.
--- NOTE | 2021-10-10 03:58 | NUR ---
SHIFT SUMMARY PATIENT ALERT AND ORIENTED ANGIE N/V IN THIS SHIFT ASSISTED WITH CARE AND OFFERED TO BE ASSISTED TO THE BATHROOM PT STATED SHE IS TO WEAK SHE WONT BE ABLE TO TRANSFER TO THE BATHROOM.CONT IV FLUIDS D5W1/2 RUNNING at 50ml/hr.NO CUTE CHANGE NOTED
[2021-10-10 05:12] LABS: Albumin, Blood 2.9 g/dL (3.4-5.0); Anion Gap 6 mmol/L (6-16); Blood Urea Nitrogen 9 mg/dL (8-24); Bun/Creatinine Ratio 13.7 (12.0-20.0); CO2, Blood 28 mmol/L (21-32); Calcium, Blood 8.2 mg/dL (8.5-10.1); Chloride, Blood 107 mmol/L (98-108); Creatinine, Blood 0.66 mg/dL (0.40-1.00); Glomerular Filtration Rate >60 (60-); Glucose, Blood 119 mg/dL (70-99); Phosphorus, Blood 2.1 mg/dL (2.5-4.9); Potassium, Blood 3.3 mmol/L (3.5-5.5); Sodium, Blood 141 mmol/L (136-145)
--- NOTE | 2021-10-10 18:46 | NUR ---
SHIFT SUMMARY PT OUT TO [place] TODAY BY [facility]. REPORTED SIGNIFICANT DIZZINESS DURING TRANSPORTATION AND STUDY. HAS HAD SEVERAL EPISODES OF SMALL AMOUNTS OF EMESIS <50ML AT A TIME. WAS ABLE TO TOLERATE ORAL MEDS TODAY BUT CONTINUES TO DECLINE ANY FOOD OR THERAPIES. CONTINUES TO USE BEDPAN DUE TO SEVERE DIZZINESS WITH ANY MOVEMENT.
--- NOTE | 2021-10-11 08:10 | NUR ---
IRAM STARTED OUT THE EVENING PROFOUNDLY SHAKEN BY NAUSEA AND DIZZINESS FOR THE FIRST FEW HOURS. EVERYTHING BEGAN TO CALM DOWN FOR HER AROUND 2130 WHEN THE LIGHTS WENT OUT AND SHE WAS ABLE TO GET ANOTHER DOSE OF ZOFRAN AND REST. MECLIZINE GIVEN AT 2400 AND PATIENT SLEPT THROUGH THE NIGHT. AM MECLIZINE WAS HELD PER PATIENT REQUEST SHE WANTED TO KEEP SLEEPING A WHILE LONGER. DAY RN TO GIVE 0600 DOSE
[2021-10-11 09:50] LABS: Albumin, Blood 3.3 g/dL (3.4-5.0); Anion Gap 8 mmol/L (6-16); Blood Urea Nitrogen 7 mg/dL (8-24); Bun/Creatinine Ratio 8.3 (12.0-20.0); CO2, Blood 30 mmol/L (21-32); Calcium, Blood 8.6 mg/dL (8.5-10.1); Chloride, Blood 104 mmol/L (98-108); Creatinine, Blood 0.85 mg/dL (0.40-1.00); Glomerular Filtration Rate >60 (60-); Glucose, Blood 103 mg/dL (70-99); Phosphorus, Blood 3.4 mg/dL (2.5-4.9); Potassium, Blood 3.2 mmol/L (3.5-5.5); Sodium, Blood 142 mmol/L (136-145)
--- NOTE | 2021-10-11 13:28 | NUR ---
Pt resting in bed upon arrival. Pt denies pain but does report significant nausea that worsens with any kind of movement and PO intake. Pt reports at this point nausea regimen has little benefit. Offered therapeutic listening and answered questions. Pt expresses appreciation and reports no other concerns at this time. Spoke with Primary RN Kadeem and discussed case. Spoke with Dr Barton, discussed case and potential medications. Palliative Care will remain available.
--- NOTE | 2021-10-11 17:43 | NUR ---
SHIFT SUMMARY PATIENT RESTING IN BED WITH EYES CLOSED LISTENING TO TV. PATIENT HAS BEEN NAUSEATED T/O SHIFT. MEDICATED PER MAR WITH LITTLE RELIEF. PATIENT HAS POOR APPETITE. PATIENT IS USING BEDPAN AND IS REFUSING TO MOVE OR WORK WITH PT DUE TO NAUSEA. TELE SR 59. WILL CONTINUE TO MONITOR.
--- NOTE | 2021-10-12 05:03 | NUR ---
SOCCER COMMENTATOR SUMMARY PATIENT HAD A FAIR SHIFT.ASSESSMENT DONE AND RECORDED. VITALS CHECKED AND WERE STABLE. SHE IS STILL NAUSEOUS AND WAS MEDICATED NEEDED. SHE OTHERWISE DID NOT LODGE ANY OTHER COMPLAINTS. WILL CONTINUE TO MONITOR HER.
[2021-10-12 07:05] LABS: Magnesium, Blood 1.9 mg/dL (1.6-2.4); Potassium, Blood 3.7 mmol/L (3.5-5.5)
--- NOTE | 2021-10-12 17:20 | NUR ---
SHIFT SUMMARY PT A/O X4 AND BEDBOUND THIS SHIFT DUE TO EXTREME DIZZINESS AND NAUSEA. TREATED FOR NAUSEA THIS SHIFT PER EMR WITH SOME EFFECT BUT NOT ENOUGH FOR THE PATIENT TO BE ABLE TO AMBULATE. VSS. WILL REPORT TO NASEEM CAMERON.
--- NOTE | 2021-10-13 03:55 | NUR ---
CANINE ENFORCEMENT OFFICER SUMMARY PATIENT HAD A FAIR SHIFT. SHE DID NOT HAVE ANY COMPLAIN OVERNIGHT. HER V/S CHECKED AND RECORDED, THEY ARE STABLE. WILL CONTINUE TO MONITOR HER.
[2021-10-13 05:04] LABS: Hematocrit 43.1 % (33.0-51.0); Hemoglobin 14.2 g/dL (11.5-16.0); Mean Corpuscular HGB 28.5 pg (26.0-34.0); Mean Corpuscular HGB Conc 32.9 g/dL (31.5-36.5); Mean Corpuscular Volume 87 fL (80-100); Mean Platelet Volume 10.5 fL (9.1-12.4); Platelet Count 331 K/mm3 (150-400); RDW Coefficient Variation 12.5 % (11.7-14.2); RDW Standard Deviation 39.6 fL (35.1-46.3); Red Blood Cell Count 4.98 M/mm3 (3.80-5.20); White Blood Cell Count 5.18 K/mm3 (4.00-11.30)
[2021-10-13 05:21] LABS: Albumin, Blood 2.8 g/dL (3.4-5.0); Anion Gap 5 mmol/L (6-16); Blood Urea Nitrogen 10 mg/dL (8-24); Bun/Creatinine Ratio 9.8 (12.0-20.0); CO2, Blood 28 mmol/L (21-32); Calcium, Blood 8.6 mg/dL (8.5-10.1); Chloride, Blood 109 mmol/L (98-108); Creatinine, Blood 1.02 mg/dL (0.40-1.00); Glomerular Filtration Rate 53 (60-); Glucose, Blood 107 mg/dL (70-99); Phosphorus, Blood 4.1 mg/dL (2.5-4.9); Potassium, Blood 3.5 mmol/L (3.5-5.5); Sodium, Blood 142 mmol/L (136-145)
--- NOTE | 2021-10-13 17:24 | NUR ---
SHIFT SUMMARY PT HAS SHOWN SIGNS OF IMPROVEMENT THIS SHIFT. SHE IS STILL DIZZY BUT HAS NOT REQUIRED ANY NAUSEA MEDICATION THIS SHIFT. WAS ABLE TO WORK WITH PHYSICAL THERAPY AND SIT ON THE SIDE OF THE BED. STILL TOO DIZZY TO AMBULATE. STILL USING THE BED MCNEIL. VSS. WILL REPORT TO NASEEM RN.
--- NOTE | 2021-10-14 03:12 | NUR ---
SALES CENTER MANAGER SUMMARY PATIENT HAD A FAIR SHIFT. ASSESSMENT DONE AND RECORDED. STATED SHE FELT BETTER THAN SHE WAS. NO COMPLAINTS OVERNIGHT. WILL CONTINUE TO MONITOR HER,
[2021-10-14] MEDS ORDERED: CLOP75 PO (13:07)
[2021-10-14] MEDS ORDERED: ATOR40TA PO (13:07)
[2021-10-14] MEDS ORDERED: MECL25 PO (13:08)
[2021-10-14] MEDS ORDERED: METO25ER PO (13:08)
[2021-10-14] MEDS ORDERED: ONDA4ODT MM (13:09)
--- NOTE | 2021-10-14 16:57 | NUR ---
DISCHARGE NOTE PATIENT DISCHARGED THIS SHIFT AT 1630 WITH SPOUSE VIA WHEELCHAIR. DISCHARGE PAPERWORK WENT OVER WITH PATIENT. PATIENT SPOKE WITH PATIENT ADVOCATE THIS SHIFT CONCERNING THEIR DISCHARGE HOME. PATIENT STATED "THEY DID NOT FEEL WELL ENOUGH TO GO HOME." THE PATIENT FELT PUSHED OUT OF THE HOSPITAL ON SHORT NOTICE. THE PATIENT WAS SPOKEN TO ABOUT DISCHARGE PLANS THIS AM. THE PATIENT REFUSED STAFF RECCOMENDATIONS FOR SNF PLACEMENT FOR REHABILITATION. THE PATIENT ALSO REFUSED HOME HEALTH. NOTHING FURTHER TO REPORT.
== END 2021-10-14 16:30 | disposition home or self-care (01) | DRG 64 ==
LOC: ER 09:09 → MEDS 12:27 → ENPENDDIS 10-14 12:26 → MEDS 10-14 16:30
PROVIDERS: Internal Medicine; Nurse Practitioner Acute Care; Physician Assistant; ADMIT Internal Medicine
PROC: 8E0ZXY6 Isolation (ICD-10-PCS; principal; 2021-10-08)
DX: I63.9 Cerebral infarction, unspecified (principal); U07.1 COVID-19; D68.69 Other thrombophilia; J45.909 Unspecified asthma, uncomplicated; E66.01 Morbid (severe) obesity due to excess calories; I10 Essential (primary) hypertension; E78.5 Hyperlipidemia, unspecified; I48.0 Paroxysmal atrial fibrillation; E83.39 Other disorders of phosphorus metabolism; E87.6 Hypokalemia; Z68.37 Body mass index [BMI] 37.0-37.9, adult; Z98.890 Other specified postprocedural states; Z98.891 History of uterine scar from previous surgery; Z88.2 Allergy status to sulfonamides; Z88.8 Allergy status to other drugs, medicaments and biological substances; Z91.040 Latex allergy status; Z91.048 Other nonmedicinal substance allergy status; Z79.82 Long term (current) use of aspirin; Z79.899 Other long term (current) drug therapy
CPT/HCPCS: 0241U; 36415; 70450; 70544; 70553; 80053; 80061; 80069; 82565; 83036; 83690; 83735; 84132; 85025; 85027; 93005; 93010; 93306; 93880; 94760; 96374; 96375; 97110; 97116; 97162; 97530; 99285-25; A9270; A9579; C9113; J2405; J2550; J3360; J3480; J7030; J7060; J7120

== ENCOUNTER 2024-01-02 14:54 | Emergency (ER) | payer OTHER ==
[~2024-01-02] VITALS: Ht 167.6 cm; Wt 106.6 kg
[~2024-01-02 14:54] MED LIST changes: +ATOR40TA PO; +CLOP75 PO; +MECL25 PO; +METO25ER PO; +ONDA4ODT MM
[2024-01-02] MEDS ORDERED: XARELTO20 MG PO (15:46)
[2024-01-02] MEDS ORDERED: Metoprolol Tartrate 1 MG/ML 5 ML VIAL IV ONE (16:10)
[2024-01-02 16:15] LABS: BASOPHILS ABSOLUTE AUTO 0.05 K/mm3 (0.00-0.23); BASOPHILS PERCENT AUTO 1 % (0-2); EOSINOPHILS PERCENT AUTO 1 % (0-6); Hematocrit 45.7 % (33.0-51.0); Hemoglobin 15.4 g/dL (11.5-16.0); IMMATURE GRAN ABSOLUTE AUTO 0.03 K/mm3 (0.00-0.10); IMMATURE GRAN PERCENT AUTO 0 % (0-1); LYMPHOCYTES ABSOLUTE AUTO 1.63 K/mm3 (0.84-5.20); LYMPHOCYTES PERCENT AUTO 21 % (21-46); MONOCYTES ABSOLUTE AUTO 0.74 K/mm3 (0.16-1.47); MONOCYTES PERCENT AUTO 10 % (4-13); Mean Corpuscular HGB 29.6 pg (26.0-34.0); Mean Corpuscular HGB Conc 33.7 g/dL (31.5-36.5); Mean Corpuscular Volume 88 fL (80-100); Mean Platelet Volume 10.5 fL (9.1-12.4); NEUTROPHILS ABSOLUTE AUTO 5.28 K/mm3 (1.96-9.15); NEUTROPHILS PERCENT AUTO 67 % (41-73); Platelet Count 302 K/mm3 (150-400); RDW Coefficient Variation 13.1 % (11.7-14.2); RDW Standard Deviation 42.5 fL (35.1-46.3); White Blood Cell Count 7.83 K/mm3 (4.00-11.30)
[2024-01-02 16:37] LABS: Albumin, Blood 3.8 g/dL (3.4-5.0); Bilirubin, Total 0.6 mg/dL (0.1-1.0); Bun/Creatinine Ratio 21.1 (12.0-20.0); Calcium, Blood 8.7 mg/dL (8.5-10.1); Creatinine, Blood 0.8 mg/dL (0.40-1.00); Globulin, Blood 3.7 g/dL (2.2-4.0); Potassium, Blood 3.7 mmol/L (3.5-5.5); Total Protein, Blood 7.5 g/dL (6.4-8.2)
[2024-01-02 17:22] LABS: Thyroid Stimulating Hormone 3.4 uIU/mL (0.360-4.800)
[2024-01-02 17:28] LABS: Magnesium, Blood 2.3 mg/dL (1.6-2.4)
[2024-01-02] MEDS ORDERED: dilTIAZem HCL 125 MG in Dextrose 5% 100 ML IV SCH (17:40)
[2024-01-02] MEDS ORDERED: Rivaroxaban 10 MG Tab PO ONE (17:45)
[2024-01-02] MEDS ORDERED: Diltiazem HCl 5 MG / ML 5ML Vial IV ONE ×2 (18:00)
[2024-01-02 21:00] VITALS: BP 138/82
== END 2024-01-02 21:29 | disposition short-term general hospital (02) ==
LOC: ER 14:54
PROVIDERS: Family Medicine; Student in an Organized Health Care Education/Training Program
DX: R55 Syncope and collapse (principal); I48.91 Unspecified atrial fibrillation; Z88.8 Allergy status to other drugs, medicaments and biological substances; Z91.040 Latex allergy status; Z88.2 Allergy status to sulfonamides; Z91.048 Other nonmedicinal substance allergy status; Z88.5 Allergy status to narcotic agent; J45.909 Unspecified asthma, uncomplicated
CPT/HCPCS: 70450; 71045; 80053; 83735; 84443; 84484; 85025; A9270